=== PATIENT | female | born 1980 | race Caucasian/White ===

== ENCOUNTER 2021-04-08 13:42 | Emergency (ER) | payer MEDICAID, SELFPAY ==
[2021-04-08 15:21] VITALS: BP 143/86; PULSE 98; RESP 20; TEMP 35.9; O2SAT 100; BMI 42.0
[2021-04-08 15:38] LABS: MANUAL DIFF FLAG NO
[2021-04-08 15:40] LABS: Basophils Absolute Auto 0.1 X10*3/uL (0.0-0.2); Basophils Percent Auto 0.5 % (0-2); Eosinophils Absolute Auto 0.3 X10*3/uL (0.0-0.4); Eosinophils Percent Auto 1.9 % (0-4); Hematocrit 38.1 % (37.0-47.0); Hemoglobin 13.1 g/dl (12.0-16.0); Imm Gran Pct Auto 0.7 % (0.0-0.4); Lymphocytes Absolute Auto 3.6 X10*3/uL (1.2-4.9); Lymphocytes Percent Auto 26.1 % (20-40); Mean Corpuscular HGB Conc 34.4 g/dl (31.0-35.0); Mean Corpuscular Hemoglobin 33.9 pg (27.0-33.0); Mean Corpuscular Volume 98.7 fL (80.0-98.0); Mean Platelet Volume 10.2 fL (9.4-12.3); Monocytes Absolute Auto 0.9 X10*3/uL (0.1-1.2); Monocytes Percent Auto 6.4 % (2-11); NRBC Pct Auto 0.1 /100WBC (0.0-0.2); Neutrophils Absolute Auto 8.9 x10*3/uL (2.0-8.3); Neutrophils Percent Auto 64.4 % (45-73); Platelet Count 476 X10*3/uL (160-400); Red Blood Count 3.86 X10*6/uL (4.20-5.50); Red Cell Distribution Width 14.2 % (11.0-16.0); White Blood Count 13.9 X10*3/uL (4.8-10.8)
[2021-04-08 15:45] LABS: Appearance Urine CLEAR; Color Urine YELLOW; Glucose Urine UA NEG (NEG); Leukocyte Esterase Urine NEG (NEG); Nitrite Urine NEG (NEG); Specific Gravity - Urine 1.015 (1.005-1.025); UACC Culture Trigger NO; Urine Blood TRACE (NEG); Urine Ketones NEG (NEG); Urine Protein TRACE MG/DL (NEG-TRACE)
[2021-04-08 15:55] LABS: Alanine Aminotransferase 19 U/L (0-31); Albumin Level 3.8 g/dL (3.5-5.0); Alkaline Phosphatase 59 U/L (39-117); Anion Gap 14 (12-20); Aspartate Amino Transferase 18 U/L (5-31); Bilirubin Total 0.8 mg/dL (0.0-1.0); Blood Urea Nitrogen 7 mg/dL (9-16); Calcium 9.6 mg/dL (8.4-10.2); Carbon Dioxide 24 mmol/L (22-29); Chloride 105 mmol/L (96-108); Creatinine Clr Calc Pharmacy 124.4; Estimated Glomerular Filt Rate > 60; Glucose Random 91 mg/dL (60-115); Potassium 4.2 mmol/L (3.3-5.1); Sodium 139 mmol/L (135-145); Total Protein 7.1 g/dL (6.5-8.0)
[2021-04-08 16:13] LABS: Bacteria Urine 2+ /LPF; Squamous Epithelial Cell Urine 1+ /LPF
[2021-04-08] MEDS: Ibuprofen 600 MG TABLET PO (19:05)
== END 2021-04-08 22:17 | disposition left against medical advice (07) ==
PROVIDERS: Emergency Provider Emergency Medicine; PCP Physician Assistant Medical
DX: R10.9 Unspecified abdominal pain (principal); I10 Essential (primary) hypertension
CPT/HCPCS: 36415; 80053; 81001; 81003; 85025; 99283

== ENCOUNTER 2022-11-26 12:47 | Emergency (ER) | payer OTHER, SELFPAY ==
--- NOTE | ~2022-11-26 | XR_ITS ---
EXAMINATION: XR WRIST, LEFT CLINICAL INFORMATION: Pain COMPARISON: None available. TECHNIQUE: PA, lateral, and oblique views of the left wrist. FINDINGS: No acute fracture or dislocation. Joint spaces are maintained. Soft tissues are unremarkable. XR/XR wrist LT min 3V IMPRESSION: No acute osseous abnormality.
[2022-11-26 12:57] VITALS: BP 169/95; PULSE 82; RESP 16; TEMP 36.6; O2SAT 96; BMI 39.3
--- NOTE | 2022-11-26 12:58 | ED_ITS ---
HPI - General Adult General Chief complaint: Extremity Problem Stated complaint: R & L Hand & Arm Pain Tingling No Injury Time Seen by Provider: 11/26/22 13:02 Source: patient Mode of arrival: ambulatory Limitations: no limitations History of Present Illness HPI narrative: 41 yo female with past medical history of chronic pain syndrome which includes chronic neck and back pain, being seen by rheumatology here with complaints of left hand/wrist burning pain and pins and needles, chronic back and neck pain x 5 days unrelieved with home cymbalta, motrin/tylenol. Patient denies any known injury or trauma. Patient does work on her computer all day. She does have a history of carpal tunnel on the right hand but states this feels different. There is no associated weakness, incontinence, fevers, weight loss, night sweats. Patient reports she had outpatient x-rays of her cervical spine last week but does not know the results. Related Data Previous Rx's Medication Instructions Recorded cyclobenzaprine 10 mg tablet 10 mg PO TID PRN muscle spasm #15 11/26/22 tabs oxycodone 5 mg tablet 5 mg PO Q8H PRN pain #10 tabs 11/26/22 prednisone 20 mg tablet 40 mg (2 x 20 mg) PO DAILY #10 tabs 11/26/22 Allergies Allergy/AdvReac Type Severity Reaction Status Date / Time amitriptyline Allergy Unknown sweat and Verified 11/26/22 12:59 constipation gabapentin Allergy Unknown adverse Verified 11/26/22 12:59 reaction morphine [MORPHINE] Allergy Unknown HOT DIZZY Verified 11/26/22 12:59 NAUSEA, lightheadedness oseltamivir [From TAMIFLU] Allergy Unknown STOMACH Verified 11/26/22 12:59 UPSET, nausea, vomiting pregabalin [From LYRICA] Allergy Unknown HEADACHES, Verified 11/26/22 12:59 cognitive slow down Review of Systems Review of Systems: Yes all other systems are reviewed and are negative Constitutional: Constitutional: Reports no additional constitutional complaints, Denies body ache(s), Denies chills, Denies fever(s), Denies headache(s) and Denies weakness Eyes: Eyes: Reports no additional eye complaints and Denies change in vision ENT: Reports system reviewed and no additional complaints, except as documented, Denies dizziness, Denies headache(s), Denies nasal congestion, Denies nasal discharge and Denies neck pain Cardiovascular: Cardiovascular: Reports no additional cardiovascular complaints, Denies chest pain, Denies leg edema and Denies dyspnea Respiratory: Respiratory: Reports no additional respiratory complaints, Denies cough and Denies dyspnea Gastrointestinal: Gastrointestinal: Reports no additional gastrointestinal complaints, Denies abdominal pain, Denies diarrhea, Denies nausea and Denies vomiting Genitourinary: Genitourinary: Reports no additional female genitourinary complaints and Denies urinary incontinence Musculoskeletal: Musculoskeletal: Reports no additional musculoskeletal complaints, Denies back pain, Denies arthralgias, Denies joint swelling, Denies neck pain, Reports numbness and Reports tingling Integumentary/Breasts: Skin/Breast: Reports system reviewed and no additional complaints, except as docu and Denies rash Neurologic: Reports system reviewed and no additional complaints, except as documented, Denies Abnormal speech present, Denies dizziness, Denies headache(s), Reports numbness, Reports tingling and Denies weakness PMFSH Past Medical History Attestation statement: The following information was validated with the patient. Source: old records reviewed and nursing notes reviewed Medical History Anxiety Depression Hereditary spherocytosis HTN (hypertension) Steatosis of liver Acute renal impairment Undifferentiated spondyloarthropathy Osteoarthritis Chronic interstitial cystitis Immunodeficiency Chronic fatigue syndrome Fibromyalgia Asthma IBS (irritable bowel syndrome) Obesity Surgical History History of appendectomy Social History Social History Advance Directives: Yes Advance Directives Information Provided: Yes Advance Directives on File: No Physical Exam ED Vital Signs: Vital Signs - 24 hr 11/26/22 12:57 Temperature 97.9 F Pulse Rate 82 Respiratory Rate 16 Blood Pressure 169/95 H Pulse Oximetry 96 Oxygen Delivery Method Room Air BMI result Body Mass Index 39.3 Const General: cooperative, healthy appearing, comfortable and no acute distress Orientation/consciousness: patient oriented x3 Limitations: no limitations HENMT Head: Yes normal to inspection Ears: hearing grossly normal bilaterally General nose exam: Normal external nose present Face and sinus: Yes normal facial exam Mouth: Normal oral and palatal mucosa present Throat: Yes posterior oropharynx normal Eyes General: appearance normal, both eyes and all related structures Pupils: Equal, round and reactive pupils present Neck Other: No cervical step offs or deformities TTP to the left trap with palpable muscle spasm Neck: Yes normal visual inspection, Yes full ROM, Yes no lymphadenopathy and Yes no meningeal signs Chest Chest palpation & inspection: normal inspection of the chest Resp Effort & Inspection: normal respiratory effort Auscultation: clear to auscultation bilaterally Cardio Rate: regular rate Rhythm: regular rhythm Peripheral pulses: Peripheral pulses 2+ throughout GI Inspection: Yes normal to inspection Palpation (GI): Soft to palpation and nontender Auscultation: normal bowel sounds Back/Spine/Pelvis Other: TTP to lumbar spine with no step offs or deformities Pain with flexion of spine Thoracic/Lumbar Spine: thoracic and lumbar spine normal to inspection Skin General skin exam: no rashes or lesions noted Neuro General: patient oriented x3, moves all extremities, no meningeal signs, no focal motor deficits and normal sensation to monofilament Cranial nerves: Yes CN's II-XII intact bilaterally, Yes Equal, round and reactive pupils present, Yes Bilaterally intact EOM present, Yes Nystagmus not present, Yes Normal facial strength present and Yes Midline tongue present Cognition (Neuro): normal cognition Speech: No Abnormal speech present Gait exam (Neuro): Normal gait present Motor exam (neuro): 5/5 motor strength present throughout Sensory Exam: Normal double simultaneous stimulation for sensation Deep tendon reflexes (DTR's): Right triceps reflex intensity grade: 2+, Left triceps reflex intensity grade: 2+, Rt Biceps (C5, C6): 2+, Left biceps reflex intensity grade: 2+, Right brachioradialis reflex intensity grade: 2+ and Left brachioradialis reflex intensity grade: 2+ Extrem Other: TTP to the left dorsal wrist worsened with flexion No swelling Full passive/active ROM Negative phalen, tinel, finklestein test General: Yes normal to inspection Course Course Course Narrative: RME - 41 yo female with history of chronic pain syndrome who presents to the ER for evaluation of left hand, burning, tingling and lower arm numbness for the last 5 days. History of carpal tunnel on the right. Works on a computer. She also reports terrible back and shoulder pain, hx arthritis of the back. [employer] took a cervical spinal x-ray a couple of days ago but never got the read. Plan: xray wrist and cervical spine Reevaluation(s) Reevaluation #1: X-rays of the left wrist are unremarkable. Patient reports improvement of pain after receiving analgesia here. I will discharge her home with supportive care and recommendations to follow-up with her primary care doctor for any continued symptoms for possible MRI of her cervical spine. Reviewed worrisome signs and symptoms of when to return to the emergency room. Comfortable plan for discharge home. Medications Administered Discontinued Medications Generic Name Dose Route Start Last Admin Trade Name Maxine PRN Reason Stop Dose Admin Cyclobenzaprine HCl 10 mg 11/26/22 14:14 11/26/22 14:35 Cyclobenzaprine Hcl 10 Mg Tablet PO 11/26/22 14:15 10 mg ONCE ONE Administration Ketorolac Tromethamine 60 mg 11/26/22 14:14 11/26/22 14:34 Ketorolac Tromethamine 60 Mg/2 Ml Vial IM 11/26/22 14:15 60 mg ONCE ONE Administration Oxycodone HCl 5 mg 11/26/22 14:14 11/26/22 14:35 Oxycodone Hcl Immed Release 5 Mg Tablet PO 11/26/22 14:15 5 mg ONCE ONE Administration Medical Decision Making Medical Decision Making MDM Narrative: 41 yo female with past medical history of chronic pain syndrome which includes chronic neck and back pain, being seen by rheumatology here with complaints of left hand/wrist burning pain and pins and needles, chronic back and neck pain x 5 days unrelieved with home cymbalta, motrin/tylenol. Patient denies any known injury or trauma. Patient does work on her computer all day. She does have a history of carpal tunnel on the right hand but states this feels different. There is no associated weakness, incontinence, fevers, weight loss, night sweats. Patient reports she had outpatient x-rays of her cervical spine last week but do es not know the results. On exam patient has a normal neuro exam. There is some mild tenderness the left trapezius with palpable muscle spasms worsened with compression palpation. There is also some mild tenderness over the left dorsal wrist which is worsened with flexion. ?cervical radiculopathy vs carpal tunnel syndrome Plan: X-ray left wrist, had outpatient cervical spine x-rays so I do not think she needs repeat Provide analgesia and re-assess Differential Diagnosis Differential Diagnoses: The differential diagnosis associated with the presentation includes Cervical radiculopathy Carpal tunnel syndrome Low concern for cord compression, cauda equina with normal neuro exam no red flag symptoms Low concern for epidural abscess with no history of IV drug abuse, immunocompromised state in her normal neurological exam Low concern for malignancy with no red flag symptoms Low concern for fracture with no reports of injury Admission/Observation Consideration of admission/observation: Escalation of care including admission/observation considered No neurological deficits or red flag symptoms to suggest need for emergent MRI, neurosurgery consultation or transfer to tertiary care center Independent Interpretation I performed an independent interpretation of an: Plain X-Ray Interpretation: I independently reviewed the x-ray agree with radiology report Radiology Impression Discussion of test interpretation with radiology: I have reviewed the radiologist's reading. Radiologist Impression: [address] [address] XRay Report Signed Patient: Kylie Fitzpatrick MR#: [id number] : 1980 Acct:[id number] Age/Sex: 41 / F ADM Date: 11/26/22 Loc: HO.ED Attending Dr: Ordering Physician: Shellie Ruffin Date of Service: 11/26/22 Procedure(s): XR wrist LT min 3V Accession Number(s): [id number] cc: SOPHIE GOODWIN PA-C; Shellie Ruffin~ EXAMINATION: XR WRIST, LEFT CLINICAL INFORMATION: Pain COMPARISON: None available. TECHNIQUE: PA, lateral, and oblique views of the left wrist. FINDINGS: No acute fracture or dislocation. Joint spaces are maintained. Soft tissues are unremarkable. XR/XR wrist LT min 3V IMPRESSION: No acute osseous abnormality. Independent Historian Clinical information obtained from an independent historian. History obtained from or confirmed by: Spouse Tests considered The following testing was considered but not selected: No neurological deficits or red flag symptoms to suggest need for emergent MRI Prescription Management I considered prescription management with: Pain Medication Discharge Plan Discharge Clinical Impression: Cervical radiculopathy Patient Disposition: Home, Self-Care Instructions: Cervical Radiculopathy (ED) Additional Instructions: Heat to the area Gentle stretching and gentle massage Follow-up with your primary care doctor for any continued symptoms as you may need to have an MRI of your cervical spine Take medications as prescribed Prescriptions: New cyclobenzaprine 10 mg tablet 10 mg PO TID PRN (Reason: muscle spasm) Qty: 15 0RF prednisone 20 mg tablet 40 mg PO DAILY Qty: 10 0RF oxycodone 5 mg tablet 5 mg PO Q8H PRN (Reason: pain) Qty: 10 0RF Rx Instructions: Partial Fill upon patient request. Referrals: Sudhakar Guzmán MD, PhD [Physician] - 1 week Sophie Goodwin PA-C [Primary Care Provider] - 1 week (for continued symptoms ) Stand Alone Forms: Work/School Release Interventions: ED Discharge Assessment Last Done: 11/26/22 15:23 Discharge Date/Time: 11/26/22 15:31
[2022-11-26] MEDS: Ketorolac Tromethamine 60 MG/2 ML VIAL IM (14:34)
[2022-11-26] MEDS: oxyCODONE HCl Immed Release 5 MG TABLET PO (14:35)
[2022-11-26] MEDS: Cyclobenzaprine HCl 10 MG TABLET PO (14:35)
== END 2022-11-26 15:31 | disposition home or self-care (01) ==
PROVIDERS: Emergency Provider Emergency Medicine; PCP Physician Assistant Medical
DX: M25.532 Pain in left wrist (principal); M54.2 Cervicalgia; M54.12 Radiculopathy, cervical region; G89.29 Other chronic pain; M54.50 Low back pain, unspecified; Z79.899 Other long term (current) drug therapy
CPT/HCPCS: 73110; 96372; 99283; 99284; J1885

== ENCOUNTER 2022-12-13 08:46 | Outpatient (AMB) | payer OTHER, SELFPAY ==
[2022-12-13 08:50] VITALS: BP 160/86; PULSE 79; TEMP 36.7; O2SAT 96; BMI 40.0
--- NOTE | 2022-12-13 08:50 | MHC.OFFVIS ---
Intake Vital Signs 12/13/22 08:50 Height 5 ft 8.5 in Weight 266 lb 12.149 oz BMI 40.0 BP 160/86 H Blood Pressure Location Rt brachial Position Sitting Pulse 79 Pulse Source Pulse Oximeter Temp 98.1 F Temp Source Skin Pulse Oximetry (%) 96 Intake Visit Reasons: Multiple joint pain Intake Note: New patient presenting to office today for multiple joint pains. Previously seen C Yo Morrow Jr for knee injections. Referred to [facility] for gel and cortisone injections. Reports degenerative disc disease. Unable to feel left hand and c/o excruciating pain right shoulder. Physician Pediatrician Required: No Accompanied by: Self / Same As Patient Allergies amitriptyline Allergy (Unknown, Verified 12/13/22 08:54) sweat and constipation gabapentin Allergy (Unknown, Verified 12/13/22 08:54) adverse reaction morphine [MORPHINE] Allergy (Unknown, Verified 12/13/22 08:54) HOT DIZZY NAUSEA, lightheadedness oseltamivir [From TAMIFLU] Allergy (Unknown, Verified 12/13/22 08:54) STOMACH UPSET, nausea, vomiting pregabalin [From LYRICA] Allergy (Unknown, Verified 12/13/22 08:54) HEADACHES, cognitive slow down Medication List - Last Reconciled 12/13/22 by Hernandez Montanez MD carvedilol 25 mg PO BID cholecalciferol (vitamin D3) (Vitamin D3) 125 mcg PO DAILY cyanocobalamin (vitamin B-12) mcg PO cyclobenzaprine 10 mg PO TID PRN duloxetine 60 mg PO DAILY fexofenadine 180 mg PO DAILY pridzlxbsto-hdjyjevcp-hdvlhhvm 200-62.5-25 mcg (Trelegy Ellipta) 1 ea inhalation DAILY lorazepam 0.5 mg PO DAILY PRN losartan 100 mg PO DAILY magnesium oxide mg PO montelukast 10 mg PO DAILY norethindrone ac-eth estradiol 1-20 mg-mcg (Junel) 1 tab PO DAILY omeprazole 20 mg PO BID oxycodone 5 mg PO Q8H PRN potassium chloride ER 10 mEq PO QID prednisone 40 mg PO DAILY PRN ropinirole 4 mg PO BEDTIME sod phos di, mono-K phos mono 250 mg (Phospha Neutral) tabs PO thiamine HCl (vitamin B1) 100 mg PO DAILY HPI HPI Comments History of Present Illness Details This is a 42-year-old female who presents for evaluation of multiple joint pain. Patient has seen multiple rheumatologists over the past few years. She used to follow-up with Dr. Morrow. She was not diagnosed with a specific an autoimmune rheumatic disease, per patient. She used to receive knee cortisone injections every 3-4 months. She was seen once by Dr. Velez in 2019 and was diagnosed with an undifferentiated spondyloarthropathy and was prescribed sulfasalazine, patient did not take sulfasalazine for fear of side effects. Patient states that she gets intermittent abrupt onset of toe swelling. She denies any skin rashes. For 1 year she has been having right elbow swelling, unrelated to activity. More recently she has been having sharp neck pain radiating to both shoulders. She has been having tingling and numbness of both hands, more so in the left hand. She states that prednisone has always been helpful. She is currently prescribed prednisone by the ER, when she presented a few days ago. She is scheduled for a neck MRI today. Ordered by PCP. She states that she has been having GI symptoms for years did multiple studies including endoscopy, colonoscopy, motility study, according to patient no test was diagnostic. She has a sister with psoriasis and mother with ulcerative colitis [facility] [place] Medical History (Updated 12/13/22 @ 09:50 by Hernandez Monatnez MD) Inflammatory bowel disease Encounter for testing for latent tuberculosis infection Screening for viral disease History of PCOS Lower leg injury Sprain of finger Fatigue Joint pain Myositis Female pattern alopecia Vitamin D deficiency Restless legs Anxiety Depression Hereditary spherocytosis HTN (hypertension) Steatosis of liver Acute renal impairment Undifferentiated spondyloarthropathy Osteoarthritis Chronic interstitial cystitis Immunodeficiency Chronic fatigue syndrome Fibromyalgia Asthma IBS (irritable bowel syndrome) Obesity Surgical History History of surgery Hx of tonsillectomy History of appendectomy Family History Paternal Grandfather Myocardial infarction Sister Thyroid disease Psoriasis Mother Thyroid disease Malignant melanoma Graves' disease Ulcerative colitis Sister Arthritis Father HTN (hypertension) Arthritis Social History Alcohol intake: current Alcohol intake frequency: holidays/special occasions only Patient Tobacco Use Status: Former Tobacco user Substance Use Type: Marijuana Current occupational status: employed Current occupation: works for [employer] Review of Systems Const Reports fatigue and Reports weakness Eyes Reports loss of vision ENT Reports dry mouth Card Reports dyspnea Resp Reports dyspnea and Reports wheezing GI Reports constipation Reports difficulty voiding Skin/Breast Reports alopecia and Reports unusual bruising Neuro Reports loss of vision and Reports weakness Endo Reports fatigue Aller/Immun Reports wheezing Physical Exam Vital Signs: Last Vital Signs Temp 98.1 F 12/13/22 08:50 Pulse 79 12/13/22 08:50 BP 160/86 H 12/13/22 08:50 Pulse Ox 96 12/13/22 08:50 BMI result Body Mass Index 40.0 Const General: cooperative and healthy appearing Nutritional Appearance: obese morbidly obese Orientation/consciousness: patient oriented x3 Limitations: no limitations HEENT Head: Yes normocephalic and Yes atraumatic Mouth: moist mucous membranes Resp Effort & Inspection: normal respiratory effort and able to speak in complete sentences Auscultation: clear to auscultation bilaterally Skin General skin exam: no rashes or lesions noted Neuro General: patient oriented x3 Extrem Other: Right wrist pain with full flexion otherwise no swollen or tender joints in both hands, fingers or wrists Normal nailfold capillaroscopy Right common extensor tendon swelling without tenderness Positive resisted wrist extension test Negative empty can test and negative speed's test bilaterally Limited range of motion with right arm abduction Negative straight leg raise test bilaterally Negative Vonnie test bilaterally Danielle test 10-14 cm No swelling, erythema, warmth in both ankles, feet Negative MTP tenderness and negative MTP squeeze test bilateral Results Reviewed Results Reviewed: Labs in 2018: TABITHA 1-40 speckled, ESR normal, dsDNA normal, HLA B27 negative, josias negative, CCP/RF negative Labs 2017? Synovial fluid showed WBC 7250 with 58% neutrophils CT pelvis showed chronic sclerotic changes and spurring across patent sacroiliac joint, MRI sacrum did not show sacroiliitis Right elbow MRI without contrast 08/2022 Interpretation:? There is increased signal and thickening involving the common extensor tendon most consistent with tendinopathy and and mild to moderate lateral epicondylitis.? The radial collateral ligament complex is intact.?? The common flexor tendon is intact.? The medial ulnar collateral ligament is intact.?? The biceps, brachialis and triceps tendons are intact.? The annular ligament is intact.? The anconeus muscle is intact.? Ulnar nerve is intact without abnormal signal.?? The adrenal is intact within its fossa.? There is no evidence of any bone marrow edema of the agreement.? The coracoid process is intact.? The radial head and neck are intact.? No significant joint effusion is seen? Conclusion: 1. There is increased signal and thickening of the common extensor tendon consistent with a moderate lateral epicondylitis.?? 2. The remaining tendons, ligaments an osseous structures of the elbow are intact Right wrist x-ray 08/2022? Findings there is no acute fracture, subluxation, or dislocation.?? The soft tissues are unremarkable.?? Impression:? No acute bone abnormality Right elbow x-ray 08/2022? Findings:? No fracture, subluxation or dislocation is evident.? There is no joint effusion.? There is a sclerotic intramedullary density in the distal right humeral diaphysis likely a bone island The soft tissues are unremarkable? Impression:? No acute bone abnormality Chest x-ray 08/2022? Impression:? No acute disease SI joint x-rays 03/2021 Impression:? Within normal limits Right hip x-ray 08/2020? Impression: 1. No bony abnormality 2. No gross arthritic change? Right knee x-ray 08/2020? Impression:? 1. No bony injury? 2. Mild tricompartmental osteoarthritis T-spine x-ray 07/2020? Impression:? There are multilevel degenerative disc disease changes throughout the spine Labs 07/2022 WBC 16.3? Hemoglobin 13.3? Platelets 533 BMP unremarkable LFT normal SPEP:? Normal except for mildly reduced albumin at 3.7 (>3.8) Total cholesterol 151? Triglycerides 172 HDL 43 Direct LDL 77 TSH 1.00 PTH 65 nl Iron studies all normal CBC Assessment & Plan Assessment & Plan (1) Undifferentiated spondyloarthropathy: Code(s): M47.819 - Spondylosis without myelopathy or radiculopathy, site unspecified Plan: This is a 42-year-old female presents for evaluation of diffuse joint pain. Clinical picture consistent with an undifferentiated spondyloarthropathy, in addition to degenerative arthritis and fibromyalgia. Old labs and imaging studies reviewed. Will check additional labs. Will retrieve cervical spine MRI. Will have to consider putting patient on a DMARD. However will have to be cautious given her history of splenectomy. Plan I spent 65 minutes reviewing patient's chart, evaluating patient, ordering diagnostic workup, counseling patient and documenting in the chart Orders: Orders Erythrocyte Sedimentation Rate Today M47.819 - Spondylosis without myelopathy or radiculopathy, site unspecified Immunofixation Pnl, Serum Today M47.819 - Spondylosis without myelopathy or radiculopathy, site unspecified Protein Electrophoresis, Serum Today M47.819 - Spondylosis without myelopathy or radiculopathy, site unspecified T Spot TB Today Z11.7 - Encounter for testing for latent tuberculosis infection Other Ref Test - Misc Today K52.9 - Noninfective gastroenteritis and colitis, unspecified Complete Blood Count Auto Diff Today M47.819 - Spondylosis without myelopathy or radiculopathy, site unspecified Comprehensive Met. Panel Today M47.819 - Spondylosis without myelopathy or radiculopathy, site unspecified C Reactive Protein Today M47.819 - Spondylosis without myelopathy or radiculopathy, site unspecified Hepatitis A,B,C Profile Today Z11.59 - Encounter for screening for other viral diseases Medications: Changed From prednisone 40 mg (2 x 20 mg) PO DAILY 10 tabs 0RF To prednisone 40 mg PO DAILY PRN Coding Level of Care Code New Pt Level 5 (72326) Diagnoses Undifferentiated spondyloarthropathy M47.819
== END 2022-12-13 09:39 | disposition home or self-care (01) ==
PROVIDERS: PCP Physician Assistant Medical; Visit Provider Student in an Organized Health Care Education/Training Program
DX: M47.819 Spondylosis without myelopathy or radiculopathy, site unspecified (principal)
CPT/HCPCS: 99205

== ENCOUNTER → 2022-12-13 08:46 | Outpatient (BNVA) | payer OTHER, SELFPAY | PROVIDERS: PCP Physician Assistant Medical; Visit Provider Student in an Organized Health Care Education/Training Program ==

== ENCOUNTER 2022-12-18 21:48 | Emergency (ER) | payer OTHER, SELFPAY ==
--- NOTE | 2022-12-18 | ECG_ITS ---
Test Reason : SOB Blood Pressure : / mmHG Vent. Rate : 067 BPM Atrial Rate : 067 BPM P-R Int : 124 ms QRS Dur : 090 ms QT Int : 418 ms P-R-T Axes : -10 007 020 degrees QTc Int : 441 ms Normal sinus rhythm Normal ECG When compared with ECG of 17-SEP-2018 12:32, No significant change was found Referred By: Generic ED Physician Electronically Signed By:ANANT CATALAN MD
[2022-12-18 22:05] VITALS: BP 174/103; BP 194/104; PULSE 70; RESP 14; TEMP 36.8; O2SAT 100; O2SAT 97; BMI 41.0
[2022-12-18] MEDS: droPERidol 5 MG/2 ML VIAL 1.25 MG IVPUSH (23:02)
[2022-12-18 23:14] LABS: MANUAL DIFF FLAG NO
[2022-12-18 23:16] LABS: Basophils Absolute Auto 0.1 X10*3/uL (0.0-0.2); Basophils Percent Auto 0.8 % (0-2); Eosinophils Absolute Auto 0.5 X10*3/uL (0.0-0.4); Eosinophils Percent Auto 3.6 % (0-4); Hematocrit 40.9 % (37.0-47.0); Hemoglobin 13.6 g/dl (12.0-16.0); Imm Gran Abs Auto 0.18 X10*3/uL (0.00-0.03); Imm Gran Pct Auto 1.4 % (0.0-0.4); Lymphocytes Absolute Auto 3.4 X10*3/uL (1.2-4.9); Lymphocytes Percent Auto 26.5 % (20-40); Mean Corpuscular HGB Conc 33.3 g/dl (31.0-35.0); Mean Corpuscular Hemoglobin 32.2 pg (27.0-33.0); Mean Corpuscular Volume 96.9 fL (80.0-98.0); Mean Platelet Volume 10.3 fL (9.4-12.3); Monocytes Absolute Auto 1.1 X10*3/uL (0.1-1.2); Monocytes Percent Auto 8.4 % (2-11); Neutrophils Absolute Auto 7.7 x10*3/uL (2.0-8.3); Neutrophils Percent Auto 59.3 % (45-73); Platelet Count 544 X10*3/uL (160-400); Red Blood Count 4.22 X10*6/uL (4.20-5.50); Red Cell Distribution Width 13.6 % (11.0-16.0); White Blood Count 12.9 X10*3/uL (4.8-10.8)
--- NOTE | 2022-12-18 23:16 | ED_ITS ---
HPI - Syncope General Chief Complaint: Syncope Stated Complaint: syncope Time Seen by Provider: 12/18/22 23:16 Source: patient Mode of arrival: EMS Limitations: no limitations History of Present Illness HPI narrative: patient been feeling dizzy for last few days patient turning her head to the right side has undifferentiated cervical spondylosis arthropathy today while taking a shower patient felt more dizzy with everything spinning aroundunable to stand open with increase nausea. History of vertigo in the past no fever no chills no cough upper respiratory no urinary complaints no fever or chills no chest or palpitation Related Data Home Medications Medication Instructions Recorded Confirmed carvedilol 25 mg tablet 25 mg PO BID 12/13/22 12/13/22 cholecalciferol (vitamin D3) 125 125 mcg PO DAILY 12/13/22 12/13/22 mcg (5,000 unit) tablet (Vitamin D3) cyanocobalamin (vitamin B-12) mcg PO 12/13/22 12/13/22 1,000 mcg tablet duloxetine 60 mg capsule,delayed 60 mg PO DAILY 12/13/22 12/13/22 release fexofenadine 180 mg tablet 180 mg PO DAILY 12/13/22 12/13/22 fluticasone fur. 200 mcg-umeclid 1 ea inhalation DAILY 12/13/22 12/13/22 62.5 mcg-vilant 25 mcg inhalat.powder (Trelegy Ellipta) lorazepam 0.5 mg tablet 0.5 mg PO DAILY PRN 12/13/22 12/13/22 losartan 100 mg tablet 100 mg PO DAILY 12/13/22 12/13/22 magnesium oxide mg PO 12/13/22 12/13/22 montelukast 10 mg tablet 10 mg PO DAILY 12/13/22 12/13/22 norethindrone acetate 1 mg-ethinyl 1 tab PO DAILY 12/13/22 12/13/22 estradiol 20 mcg tablet (Junel) omeprazole 20 mg capsule,delayed 20 mg PO BID 12/13/22 12/13/22 release potassium chloride 10 mEq 10 meq PO QID 12/13/22 12/13/22 tablet,extended release prednisone 20 mg tablet 40 mg PO DAILY PRN 12/13/22 12/13/22 ropinirole 4 mg tablet 4 mg PO BEDTIME 12/13/22 12/13/22 sodium di- and tab PO 12/13/22 12/13/22 monophosphate-potassium phos monobasic 250 mg tablet (Phospha Neutral) thiamine HCl (vitamin B1) 100 mg 100 mg PO DAILY 12/13/22 12/13/22 tablet Previous Rx's Medication Instructions Recorded cyclobenzaprine 10 mg tablet 10 mg PO TID PRN muscle spasm #15 11/26/22 tabs oxycodone 5 mg tablet 5 mg PO Q8H PRN pain #10 tabs 11/26/22 meclizine 25 mg tablet 25 mg PO TID PRN dizziness #20 tabs 12/19/22 Allergies Allergy/AdvReac Type Severity Reaction Status Date / Time amitriptyline Allergy Unknown sweat and Verified 12/18/22 22:11 constipation gabapentin Allergy Unknown adverse Verified 12/18/22 22:11 reaction morphine [MORPHINE] Allergy Unknown HOT DIZZY Verified 12/18/22 22:11 NAUSEA, lightheadedness oseltamivir [From TAMIFLU] Allergy Unknown STOMACH Verified 12/18/22 22:11 UPSET, nausea, vomiting pregabalin [From LYRICA] Allergy Unknown HEADACHES, Verified 12/18/22 22:11 cognitive slow down Review of Systems 2 Review of Systems: Yes all other systems are reviewed and are negative PMFSH Past Medical History Medical History Inflammatory bowel disease Encounter for testing for latent tuberculosis infection Screening for viral disease History of PCOS Lower leg injury Sprain of finger Fatigue Joint pain Myositis Female pattern alopecia Vitamin D deficiency Restless legs Anxiety Depression Hereditary spherocytosis HTN (hypertension) Steatosis of liver Acute renal impairment Undifferentiated spondyloarthropathy Osteoarthritis Chronic interstitial cystitis Immunodeficiency Chronic fatigue syndrome Fibromyalgia Asthma IBS (irritable bowel syndrome) Obesity Surgical History History of surgery Hx of tonsillectomy History of appendectomy Family History Family History Paternal Grandfather Myocardial infarction Sister Thyroid disease Psoriasis Mother Thyroid disease Malignant melanoma Graves' disease Ulcerative colitis Sister Arthritis Father HTN (hypertension) Arthritis Social History Social History Alcohol intake: current Alcohol intake frequency: holidays/special occasions only Patient Tobacco Use Status: Former Tobacco user Smoked in Last 30 Days: No Use of substances other than those prescribed or required for medical reasons: Yes Substance Use Type: Marijuana Substance Use Frequency: Daily Advance Directives: No Advance Directives Information Provided: Yes Patient : No Current occupational status: employed Current occupation: works for [employer] Physical Exam 2 Vital Signs: Vital Signs: Last Vital Signs Temp 98.3 F 12/18/22 22:05 Pulse 85 12/19/22 00:09 Resp 14 12/18/22 22:05 BP 195/101 H 12/19/22 00:09 Pulse Ox 100 12/18/22 22:05 O2 Del Method Room Air 12/18/22 22:05 BMI result Body Mass Index 41.0 Appearance: Alert. Oriented X3. No acute distress. Eyes: PERRLA, No Nystagmus ENT: Pharynx normal. Oral Mucosa moist Neck: Normal inspection. Neck supple. CVS: Normal heart rate and rhythm. Pulses normal. Respiratory: No respiratory distress. Equal air entry bilateral, no wheezing/rales/rhonchi Abdomen: Soft and nontender. Bowel sounds are present, no mass palpable, no CVA tenderness Skin: Skin warm and dry. Normal skin color. Normal skin turgor. Extremities: No lower extremity edema. No calf tenderness Neuro: Oriented X 3. No motor deficit. No sensory deficit.No cerebellar signs , cranial nerves II-XII intact increase vertiginous feeling moving the head to the right side Medications Administered Discontinued Medications Generic Name Dose Route Start Last Admin Trade Name Freq PRN Reason Stop Dose Admin Droperidol 1.25 mg 12/18/22 22:39 12/18/22 23:02 Droperidol 5 Mg/2 Ml Vial IVPUSH 12/18/22 22:40 1.25 mg ONCE ONE Administration Meclizine HCl 50 mg 12/18/22 23:50 12/19/22 00:13 Meclizine Hcl 25 Mg Tablet PO 12/18/22 23:51 50 mg ONCE ONE Administration Medical Decision Making Medical Decision Making [facility] Narrative: Patient's symptoms mentioned with benign positional vertigo no signs of [employer] involvement patient felt better for meclizine ambulatory in the ER orthostatics are stable no cardiac arrhythmias noted Differential Diagnosis Differential Diagnoses: The differential diagnosis associated with the presentation includes Vasovagal syncope/seizure/cardiac arrhythmia/benign positional vertigo Lab Data [facility] Lab Attestation statement: I reviewed the patient's lab results. 12/18/22 23:05 12/18/22 23:05 Labs: Lab Results 12/18/22 12/18/22 Range/Units 23:05 23:55 WBC 12.9 H (4.8-10.8) X10*3/uL RBC 4.22 (4.20-5.50) X10*6/uL Hgb 13.6 (12.0-16.0) g/dl Hct 40.9 (37.0-47.0) % MCV 96.9 (80.0-98.0) fL MCH 32.2 (27.0-33.0) pg MCHC 33.3 (31.0-35.0) g/dl RDW 13.6 (11.0-16.0) % Plt Count 544 H (160-400) X10*3/uL MPV 10.3 (9.4-12.3) fL Immature Gran % (Auto) 1.4 H (0.0-0.4) % Neut % (Auto) 59.3 (45-73) % Lymph % (Auto) 26.5 (20-40) % [place] % (Auto) 8.4 (2-11) % Eos % (Auto) 3.6 (0-4) % Baso % (Auto) 0.8 (0-2) % Lymph # (Auto) 3.4 (1.2-4.9) X10*3/uL [place] # (Auto) 1.1 (0.1-1.2) X10*3/uL Eos # (Auto) 0.5 H (0.0-0.4) X10*3/uL Baso # (Auto) 0.1 (0.0-0.2) X10*3/uL Abs Immat Gran (auto) 0.18 H (0.00-0.03) X10*3/uL Absolute Neuts (auto) 7.7 (2.0-8.3) x10*3/uL Absolute Nucleated RBC 0.000 (0.0-0.012) X10*3/uL Nucleated RBC % (auto) 0.0 (0.0-0.2) /100WBC Sodium 142 (135-145) mmol/L Potassium 4.3 (3.3-5.1) mmol/L Chloride 112 H (96-108) mmol/L Carbon Dioxide 22 (22-29) mmol/L Anion Gap 12 (12-20) BUN 13 (9-16) mg/dL Creatinine 0.83 (0.5-1.4) mg/dL Estim Creat Clear Calc 119.1 Estimated GFR > 60 Random Glucose 88 (60-115) mg/dL Calcium 9.3 (8.4-10.2) mg/dL Total Bilirubin 0.3 (0.0-1.0) mg/dL AST 14 (5-31) U/L ALT 13 (0-31) U/L Alkaline Phosphatase 87 (39-117) U/L Troponin I High Sens < 2.7 (<3.5-17.0) ng/L Total Protein 7.2 (6.5-8.0) g/dL Albumin 3.7 (3.5-5.0) g/dL Lipase 13 (8-78) U/L Urine Color Yellow Urine Appearance Clear Urine pH 6.0 (5.0-9.0) Ur Specific Bailey 1.025 (1.005-1.025) Urine Protein 30 (1+) H (Neg-Trace) mg/dL Urine Glucose (UA) Negative (Negative) mg/dL Urine Ketones Negative (Negative) mg/dL Urine Blood Small (1+) H (Negative) Urine Nitrite Negative (Negative) Ur Leukocyte Esterase Negative (Negative) Urine RBC 6-10 H (0-2) /HPF Urine WBC 0-5 (0-5) /HPF Ur Squamous Epith Cells 0-2 (0-2) /HPF Urine Bacteria Trace (None Seen) Hyaline Casts 0-2 (0-2) /LPF Urine Test NEGATIVE (NEGATIVE) COVID-19 (SHAYLA) Negative (Negative) COVID-19 Clin Com See Note Independent Interpretation I performed an independent interpretation of an: EKG Interpretation: Normal sinus rhythm heart rate 67 beats per minute normal intervals normal axis no acute ST-T changes Discharge Plan Discharge Clinical Impression: Benign paroxysmal positional vertigo Patient Disposition: Home, Self-Care Instructions: Benign Paroxysmal Positional Vertigo (ED) Additional Instructions: care and cautions as Advised medicine for dizziness as prescribed follow with PCP if not better Prescriptions: New meclizine 25 mg tablet 25 mg PO TID PRN (Reason: dizziness) Qty: 20 0RF No Action cyclobenzaprine 10 mg tablet 10 mg PO TID PRN (Reason: muscle spasm) Qty: 15 0RF oxycodone 5 mg tablet 5 mg PO Q8H PRN (Reason: pain) Qty: 10 0RF Rx Instructions: Partial Fill upon patient request. ropinirole 4 mg tablet 4 mg PO BEDTIME duloxetine 60 mg capsule,delayed release(DR/EC) 60 mg PO DAILY magnesium oxide 250 mg magnesium tablet PO montelukast 10 mg tablet 10 mg PO DAILY omeprazole 20 mg capsule,delayed release(DR/EC) 20 mg PO BID potassium chloride 10 mEq tablet extended release 10 meq PO QID norethindrone ac-eth estradiol [03/17 ()] 1-20 mg-mcg tablet 1 tab PO DAILY losartan 100 mg tablet 100 mg PO DAILY fexofenadine 180 mg tablet 180 mg PO DAILY thiamine HCl (vitamin B1) 100 mg tablet 100 mg PO DAILY carvedilol 25 mg tablet 25 mg PO BID cholecalciferol (vitamin D3) [Vitamin D3] 125 mcg (5,000 unit) tablet 125 mcg PO DAILY lorazepam 0.5 mg tablet 0.5 mg PO DAILY PRN Phospha 250 Neutral 250 mg tablet PO Trelegy Ellipta 200-62.5-25 mcg blister with device 1 ea inhalation DAILY cyanocobalamin (vitamin B-12) 1,000 mcg tablet PO prednisone 20 mg tablet 40 mg PO DAILY PRN Interventions: ED Discharge Assessment Last Done: 12/19/22 00:26 Discharge Date/Time: 12/19/22 00:28
[2022-12-18 23:28] LABS: Alanine Aminotransferase 13 U/L (0-31); Albumin Level 3.7 g/dL (3.5-5.0); Alkaline Phosphatase 87 U/L (39-117); Anion Gap 12 (12-20); Aspartate Amino Transferase 14 U/L (5-31); Bilirubin Total 0.3 mg/dL (0.0-1.0); Blood Urea Nitrogen 13 mg/dL (9-16); Calcium 9.3 mg/dL (8.4-10.2); Carbon Dioxide 22 mmol/L (22-29); Chloride 112 mmol/L (96-108); Creatinine Clr Calc Pharmacy 119.1; Estimated Glomerular Filt Rate > 60; Glucose Random 88 mg/dL (60-115); Lipase 13 U/L (8-78); Potassium 4.3 mmol/L (3.3-5.1); Sodium 142 mmol/L (135-145); Total Protein 7.2 g/dL (6.5-8.0)
[2022-12-18 23:42] LABS: Troponin-I High Sensitivity < 2.7 ng/L (<3.5-17.0)
[2022-12-19 00:03] LABS: Appearance Urine Clear; Color Urine Yellow; Glucose Urine UA Negative (Negative); Leukocyte Esterase Urine Negative (Negative); Nitrite Urine Negative (Negative); Specific Gravity - Urine 1.025 (1.005-1.025); UMIC TRIGGER UACC YES; Urine Blood Small (1+) (Negative); Urine Ketones Negative (Negative); Urine Protein 30 (1+) mg/dL (Neg-Trace)
[2022-12-19 00:04] LABS: UPreg QC Valid YES; Urine Pregnancy NEGATIVE (NEGATIVE)
[2022-12-19 00:08] VITALS: BP 203/102; PULSE 73
[2022-12-19 00:09] VITALS: BP 184/95; BP 195/101; PULSE 76; PULSE 85
[2022-12-19 00:11] LABS: Bacteria Urine Trace (None Seen); Hyaline Casts Urine 0-2 /LPF (0-2); Squamous Epithelial Cell Urine 0-2 /HPF (0-2); WBC Urine 0-5 /HPF (0-5)
[2022-12-19] MEDS: Meclizine HCl 25 MG TABLET 50 MG PO (00:13)
[2022-12-19 00:14] LABS: COVID-19 Test Negative (Negative); IDNOW Serial# 08D9AD1C
== END 2022-12-19 00:28 | disposition home or self-care (01) ==
PROVIDERS: Emergency Provider Internal Medicine
DX: H81.13 Benign paroxysmal vertigo, bilateral (principal); R55 Syncope and collapse; R11.0 Nausea; R06.02 Shortness of breath; Z11.52 Encounter for screening for COVID-19; Z20.822 Contact with and (suspected) exposure to COVID-19; Z79.899 Other long term (current) drug therapy; Z87.891 Personal history of nicotine dependence
CPT/HCPCS: 36415; 80053; 81001; 81003; 81025; 83690; 84484; 85025; 87635; 93005; 99284; J1790

== ENCOUNTER 2022-12-25 09:25 | Emergency (ER) | payer OTHER, SELFPAY ==
--- NOTE | ~2022-12-25 | CT_ITS ---
EXAMINATION: CT CERVICAL SPINE WITHOUT CONTRAST CLINICAL INFORMATION: Neck pain radiating into the right upper extremity. COMPARISON: No relevant prior imaging. TECHNIQUE: Manager Of Business Operations images were obtained. CT imaging of the cervical spine was performed without contrast. Data was reformatted into multiplanar images at the acquisition workstation. This CT examination was performed using dose optimization techniques as appropriate, variously including the following: *Automated exposure control *Adjustment of mA and/or kV according to patient size (this includes techniques or standardized protocols for targeted exams where dose is matched to indication/reason for exam; i.e. extremities or head) *Use of iterative reconstruction technique DLP: 528 mGy-cm FINDINGS: There is nonspecific reversal of the cervical lordosis. Alignment is otherwise normal. Vertebral heights are preserved. There is loss of intervertebral disc height with associated sclerotic degenerative endplate changes and hypertrophic disc osteophyte spurring at C5-C6 and C6-C7. Canal patency is not well assessed on this examination due to inherent limitations of CT without intrathecal contrast. There appears to be a broad central protrusion at C5-C6 causing at least moderate canal stenosis with possible compression of the cervical spinal cord there is at least mild canal stenosis at the levels of C4-C5 and C6-C7. No substantial bony neuroforaminal encroachment. Visualized soft tissues of the neck are unremarkable. Lung apices are clear. Limited visualization of the posterior fossa reveals no abnormal finding. CT/CT cervical spine wo IV con IMPRESSION: There is multilevel degenerative spondylosis of the cervical spine that appears most advanced at the levels of C5-C6 and C6-C7. There appears to be a broad central protrusion at C5-C6 causing at least moderate canal stenosis with possible compression of the cervical spinal cord. If there are clinical symptoms of compressive myelopathy then a dedicated cervical spine MRI can be obtained for better anatomic characterization of the cord and canal.
[2022-12-25 09:40] VITALS: BP 176/89; PULSE 84; RESP 20; TEMP 36.7; O2SAT 96; BMI 41.9
[2022-12-25] MEDS: traMADoL HCL 50 MG TABLET PO (11:34)
[2022-12-25] MEDS: predniSONE 20 MG TABLET 60 MG PO (11:52)
--- NOTE | 2022-12-25 12:30 | PC.NURSE ---
pt called nurse to room requested ice water- sts I was told to let you know if the tramadol helped. It didn't. the prednisone helped with the swelling but my pain is the same Pa aware
--- NOTE | 2022-12-25 12:30 | ED.EXTPRO ---
HPI - Extremity Problem General Chief complaint: Extremity Injury, Upper Stated complaint: R arm pain/neck pain Time Seen by Provider: 12/25/22 11:09 Source: patient Mode of arrival: ambulatory Limitations: no limitations History of Present Illness HPI Narrative: 42-year-old female history of known severe cervical radiculopathy and right sided carpal tunnel syndrome presents to ED for worsening right sided burning arm pain starting from the neck. patient denies any facial droop, nausea, vomiting, headache, any recent trauma, fever, chills, or paralysis of upper or lower extremities. Patient describes pain as 5 burning sensation. Patient was informed last week she will need to have surgery and is calling [facility] today to schedule the surgery. patient states hard to make a fist and hold objects. Related Data Home Medications Medication Instructions Recorded Confirmed carvedilol 25 mg tablet 25 mg PO BID 12/13/22 12/13/22 cholecalciferol (vitamin D3) 125 125 mcg PO DAILY 12/13/22 12/13/22 mcg (5,000 unit) tablet (Vitamin D3) cyanocobalamin (vitamin B-12) mcg PO 12/13/22 12/13/22 1,000 mcg tablet duloxetine 60 mg capsule,delayed 60 mg PO DAILY 12/13/22 12/13/22 release fexofenadine 180 mg tablet 180 mg PO DAILY 12/13/22 12/13/22 fluticasone fur. 200 mcg-umeclid 1 ea inhalation DAILY 12/13/22 12/13/22 62.5 mcg-vilant 25 mcg inhalat.powder (Trelegy Ellipta) lorazepam 0.5 mg tablet 0.5 mg PO DAILY PRN 12/13/22 12/13/22 losartan 100 mg tablet 100 mg PO DAILY 12/13/22 12/13/22 magnesium oxide mg PO 12/13/22 12/13/22 montelukast 10 mg tablet 10 mg PO DAILY 12/13/22 12/13/22 norethindrone acetate 1 mg-ethinyl 1 tab PO DAILY 12/13/22 12/13/22 estradiol 20 mcg tablet (Junel) omeprazole 20 mg capsule,delayed 20 mg PO BID 12/13/22 12/13/22 release potassium chloride 10 mEq 10 meq PO QID 12/13/22 12/13/22 tablet,extended release prednisone 20 mg tablet 40 mg PO DAILY PRN 12/13/22 12/13/22 ropinirole 4 mg tablet 4 mg PO BEDTIME 12/13/22 12/13/22 sodium di- and tab PO 12/13/22 12/13/22 monophosphate-potassium phos monobasic 250 mg tablet (Phospha Neutral) thiamine HCl (vitamin B1) 100 mg 100 mg PO DAILY 12/13/22 12/13/22 tablet Previous Rx's Medication Instructions Recorded cyclobenzaprine 10 mg tablet 10 mg PO TID PRN muscle spasm #15 11/26/22 tabs oxycodone 5 mg tablet 5 mg PO Q8H PRN pain #10 tabs 11/26/22 meclizine 25 mg tablet 25 mg PO TID PRN dizziness #20 tabs 12/19/22 prednisone 20 mg tablet 60 mg (3 x 20 mg) PO DAILY 5 days 12/25/22 #15 tabs tramadol 50 mg tablet 50 mg PO Q6H PRN pain 3 days #12 12/25/22 tabs Allergies Allergy/AdvReac Type Severity Reaction Status Date / Time amitriptyline Allergy Unknown sweat and Verified 12/25/22 09:44 constipation gabapentin Allergy Unknown adverse Verified 12/25/22 09:44 reaction oseltamivir [From TAMIFLU] Allergy Unknown STOMACH Verified 12/25/22 09:44 UPSET, nausea, vomiting pregabalin [From LYRICA] Allergy Unknown HEADACHES, Verified 12/25/22 09:44 cognitive slow down Review of Systems Review of Systems: right upper extremity burning pain from neck down the right arm. Yes all other systems are reviewed and are negative [facility] Past Medical History Medical History Inflammatory bowel disease Encounter for testing for latent tuberculosis infection Screening for viral disease History of PCOS Lower leg injury Sprain of finger Fatigue Joint pain Myositis Female pattern alopecia Vitamin D deficiency Restless legs Anxiety Depression Hereditary spherocytosis HTN (hypertension) Steatosis of liver Acute renal impairment Undifferentiated spondyloarthropathy Osteoarthritis Chronic interstitial cystitis Immunodeficiency Chronic fatigue syndrome Fibromyalgia Asthma IBS (irritable bowel syndrome) Obesity Surgical History History of surgery Hx of tonsillectomy History of appendectomy Family History Family History Paternal Grandfather Myocardial infarction Sister Thyroid disease Psoriasis Mother Thyroid disease Malignant melanoma Graves' disease Ulcerative colitis Sister Arthritis Father HTN (hypertension) Arthritis Social History Social History Alcohol intake: current Alcohol intake frequency: holidays/special occasions only Patient Tobacco Use Status: Former Tobacco user Substance Use Type: Marijuana Advance Directives: No Current occupational status: employed Current occupation: works for [employer] Physical Exam Vital Signs: Vital Signs: Last Vital Signs Temp 98.0 F 12/25/22 09:40 Pulse 84 12/25/22 09:40 Resp 20 12/25/22 09:40 BP 176/89 H 12/25/22 09:40 Pulse Ox 96 12/25/22 09:40 O2 Del Method Room Air 12/25/22 09:40 BMI result Body Mass Index 41.9 Const: General: cooperative, healthy appearing, comfortable, no acute distress, well developed, alert and awake Orientation/consciousness: oriented to person, oriented to place, oriented to time and patient oriented x3 HEENT: Head: Yes normal to inspection, Yes No palpable skull fracture present, Yes normocephalic, Yes atraumatic and No abrasion Eyes: General: appearance normal, both eyes and all related structures Neck: Neck: Yes normal visual inspection, Yes full ROM, Yes no lymphadenopathy, Yes no meningeal signs, Yes trachea midline, Yes supple, No anterior neck swelling and Yes tender ( posterior cervical) Chest: Chest palpation & inspection: normal inspection of the chest and normal palpation of entire chest wall Resp: Effort & Inspection: normal respiratory effort and able to speak in complete sentences Auscultation: clear to auscultation bilaterally Cardio: Jugular venous distension: no JVD Heart sounds: S1 normal heart sound present and S2 normal heart sound present GI: Inspection: Yes normal to inspection and No abdominal wall ecchymosis Palpation (GI): Soft to palpation, not firm, nontender, no guarding and not rigid : General: No CVA tenderness and Yes no CVA tenderness Back/Spine/Pelvis: Back: no CVA tenderness, No CVA tenderness and No back tenderness Skin: General skin exam: no rashes or lesions noted and elasticity normal Neuro: General: oriented to person, oriented to place, oriented to time, patient oriented x3, gait normal, tone normal, moves all extremities, Normal light touch and pain sensation, no meningeal signs, CN's II-XI intact bilaterally and normal sensation to monofilament Extrem: General: Yes normal to inspection and Yes full ROM Shoulder/upper arm images: 1. Positive for tenderness on palpation. Negative for crepitus, ecchymosis, or deformity. Negative for swelling or redness. positive for pain on range of motion and decreased range of motion Elbow/forearm/wrist images: 1. Positive for tenderness on palpation. 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 Patient states sensation of right and left lower extremity the same. Vascular exam and neuro exam intact. Motor exam intact but limited due to pain Psych: Appearance: grossly normal, well kempt and not disheveled Course Course Course Narrative: These are patient's [facility] MRI results Medications Administered Discontinued Medications Generic Name Dose Route Start Last Admin Trade Name Freq PRN Reason Stop Dose Admin Ketorolac Tromethamine 30 mg 12/25/22 12:32 12/25/22 12:46 Ketorolac Tromethamine 30 Mg/Ml Vial IM 12/25/22 12:33 30 mg ONCE ONE Administration Prednisone 60 mg 12/25/22 11:38 12/25/22 11:52 Prednisone 20 Mg Tablet PO 12/25/22 11:39 60 mg ONCE ONE Administration Tramadol HCl 50 mg 12/25/22 11:28 12/25/22 11:34 Tramadol Hcl 50 Mg Tablet PO 12/25/22 11:29 50 mg ONCE ONE Administration Medical Decision Making Medical Decision Making [facility] Narrative: 42-year-old female with history of cervical radiculopathy presents to ED for right upper extremity burning pain radiating from neck. Patient denies any new trauma. Patient states difficulty making a fist and holding objects. Patient is sent for cervical spine CT scan. 2:33pm: CT scan shows possible compression of the cervical spinal cord. patient re-evaluated and she states after taking Toradol and steroids she feels better. Patient now able to make to make complete fist with the right arm. Patient able to hold objects in right hand without any weakness. Patient has complete range of motion of right upper extremity. Patient able to lift right upper extremity all the way up without pain. Patient states usually with steroids her symptoms improved. Patient has MRI December 14 which she showed me on her portable [facility] which shows MRI December 14 with also states compression of the cervical spinal cord. Patient states she was aware of that and she she call today before came into the room and spoke with vince [facility] orthopedic spine surgeon and she schedule for surgery January 29. CT scan reading today same as at MRI reading done on December 14 at [facility]. No signs of myelopathy. Patient is safe for discharge. Dr. Aiken with plan. Patient informed to follow up with [facility] as soon as possible. Differential Diagnosis Differential Diagnoses: The differential diagnosis associated with the presentation includes ( cervical radiculopathy, cervical myelopathic, cervical spine fracture, right upper extremity fracture. compartment syndrome) Admission/Observation Consideration of admission/observation: Escalation of care including admission/observation considered Independent Interpretation I performed an independent interpretation of an: CT Scan Radiology Impression Discussion of test interpretation with radiology: I have reviewed the radiologist's reading. Independent Historian Clinical information obtained from an independent historian. History obtained from or confirmed by: Spouse External Record Review External record reviewed: Other ( prior [facility] note) Tests considered The following testing was considered but not selected: MRI Prescription Management I considered prescription management with: Pain Medication Discharge Plan Discharge Clinical Impression: Cervical radiculopathy Patient Disposition: Home, Self-Care Instructions: Cervical Radiculopathy (ED) Additional Instructions: recommend follow-up with your [facility] orthopedic spinal surgeon specialist for re-evaluation. You will be discharged with pain medication and steroids. Return to the ED immediately for any paralysis of right upper extremity, severe neck pain, tingling in upper or lower extremities, facial droop, loss of vision, slurred speech, urinary/bowel incontinence, headache, dizziness, fever, chills, severe neck pain, or any other concerning symptoms. Prescriptions: New prednisone 20 mg tablet 60 mg PO DAILY 5 Days Qty: 15 0RF tramadol 50 mg tablet 50 mg PO Q6H PRN (Reason: pain) 3 Days Qty: 12 0RF No Action cyclobenzaprine 10 mg tablet 10 mg PO TID PRN (Reason: muscle spasm) Qty: 15 0RF oxycodone 5 mg tablet 5 mg PO Q8H PRN (Reason: pain) Qty: 10 0RF Rx Instructions: Partial Fill upon patient request. meclizine 25 mg tablet 25 mg PO TID PRN (Reason: dizziness) Qty: 20 0RF ropinirole 4 mg tablet 4 mg PO BEDTIME duloxetine 60 mg capsule,delayed release(DR/EC) 60 mg PO DAILY magnesium oxide 250 mg magnesium tablet PO montelukast 10 mg tablet 10 mg PO DAILY omeprazole 20 mg capsule,delayed release(DR/EC) 20 mg PO BID potassium chloride 10 mEq tablet extended release 10 meq PO QID norethindrone ac-eth estradiol [03/17 ()] 1-20 mg-mcg tablet 1 tab PO DAILY losartan 100 mg tablet 100 mg PO DAILY fexofenadine 180 mg tablet 180 mg PO DAILY thiamine HCl (vitamin B1) 100 mg tablet 100 mg PO DAILY carvedilol 25 mg tablet 25 mg PO BID cholecalciferol (vitamin D3) [Vitamin D3] 125 mcg (5,000 unit) tablet 125 mcg PO DAILY lorazepam 0.5 mg tablet 0.5 mg PO DAILY PRN Phospha 250 Neutral 250 mg tablet PO Trelegy Ellipta 200-62.5-25 mcg blister with device 1 ea inhalation DAILY cyanocobalamin (vitamin B-12) 1,000 mcg tablet PO prednisone 20 mg tablet 40 mg PO DAILY PRN Stand Alone Forms: Work/School Release Interventions: ED Discharge Assessment Last Done: 12/25/22 14:59 Discharge Date/Time: 12/25/22 14:59 Print Language: Telugu
[2022-12-25] MEDS: Ketorolac Tromethamine 30 MG/ML VIAL IM (12:46)
--- NOTE | 2022-12-25 12:54 | PC.NURSE ---
pt medicated per MAR
== END 2022-12-25 14:59 | disposition home or self-care (01) ==
PROVIDERS: Emergency Provider Student in an Organized Health Care Education/Training Program; PCP Physician Assistant Medical
DX: M54.12 Radiculopathy, cervical region (principal); Z79.899 Other long term (current) drug therapy; Z87.891 Personal history of nicotine dependence
CPT/HCPCS: 72125; 96372; 99283; 99284; J1885

== ENCOUNTER 2023-01-09 15:58 | Outpatient (AMB) | payer OTHER, SELFPAY ==
[2023-01-09 15:57] VITALS: BP 160/88; PULSE 87; TEMP 36.1; O2SAT 97; BMI 41.0
--- NOTE | 2023-01-09 15:57 | MHC.OFFVIS ---
Intake Vital Signs 01/09/23 15:57 Height 5 ft 8 in Weight 269 lb 10.005 oz BMI 41.0 BP 160/88 H Blood Pressure Location Rt brachial Position Sitting Pulse 87 Pulse Source Pulse Oximeter Temp 97.0 F Temp Source Skin Pulse Oximetry (%) 97 Oxygen Delivery Method Room Air Intake Visit Reasons: SpA Intake Note: Pt last seen 12/13/22, presents today for follow up and test results. Vocational Rehab Consultant Required: No Accompanied by: Significant Other Allergies amitriptyline Allergy (Unknown, Verified 01/09/23 16:00) sweat and constipation gabapentin Allergy (Unknown, Verified 01/09/23 16:00) adverse reaction oseltamivir [From TAMIFLU] Allergy (Unknown, Verified 01/09/23 16:00) STOMACH UPSET, nausea, vomiting pregabalin [From LYRICA] Allergy (Unknown, Verified 01/09/23 16:00) HEADACHES, cognitive slow down Medication List - Last Reconciled 01/09/23 by Hernandez Montanez MD carvedilol 25 mg PO BID cholecalciferol (vitamin D3) (Vitamin D3) 125 mcg PO DAILY cyanocobalamin (vitamin B-12) mcg PO cyclobenzaprine 10 mg PO TID PRN duloxetine 60 mg PO DAILY fexofenadine 180 mg PO DAILY kcclnjzczar-lucgmsxgo-qcujrdno 200-62.5-25 mcg (Trelegy Ellipta) 1 ea inhalation DAILY lorazepam 0.5 mg PO DAILY PRN losartan 100 mg PO DAILY magnesium oxide mg PO meclizine 25 mg PO TID PRN montelukast 10 mg PO DAILY norethindrone ac-eth estradiol 1-20 mg-mcg (Junel) 1 tab PO DAILY omeprazole 20 mg PO BID oxycodone 5 mg PO Q8H PRN potassium chloride ER 10 mEq PO QID prednisone orally; ropinirole 4 mg PO BEDTIME sod phos di, mono-K phos mono 250 mg (Phospha Neutral) tabs PO thiamine HCl (vitamin B1) 100 mg PO DAILY tramadol 50 mg PO Q6H PRN 3 days HPI HPI Comments History of Present Illness Details Patient returns for follow-up after completion of her blood work. She was evaluated by Neurosurgery and will be going for cervical spine surgery January 29. She is currently on a prednisone taper Initial history: This is a 42-year-old female who presents for evaluation of multiple joint pain. Patient has seen multiple rheumatologists over the past few years. She used to follow-up with Dr. Morrow. She was not diagnosed with a specific an autoimmune rheumatic disease, per patient. She used to receive knee cortisone injections every 3-4 months. She was seen once by Dr. Velez in 2019 and was diagnosed with an undifferentiated spondyloarthropathy and was prescribed sulfasalazine, patient did not take sulfasalazine for fear of side effects. Patient states that she gets intermittent abrupt onset of toe swelling. She denies any skin rashes. For 1 year she has been having right elbow swelling, unrelated to activity. More recently she has been having sharp neck pain radiating to both shoulders. She has been having tingling and numbness of both hands, more so in the left hand. She states that prednisone has always been helpful. She is currently prescribed prednisone by the ER, when she presented a few days ago. She is scheduled for a neck MRI today. Ordered by PCP. She states that she has been having GI symptoms for years did multiple studies including endoscopy, colonoscopy, motility study, according to patient no test was diagnostic. She has a sister with psoriasis and mother with ulcerative colitis [facility] Medical History (Updated 01/09/23 @ 16:34 by Hernandez Montanez MD) History of PCOS Lower leg injury Sprain of finger Fatigue Joint pain Myositis Female pattern alopecia Vitamin D deficiency Restless legs Anxiety Depression Hereditary spherocytosis HTN (hypertension) Steatosis of liver Acute renal impairment Undifferentiated spondyloarthropathy Osteoarthritis Chronic interstitial cystitis Immunodeficiency Chronic fatigue syndrome Fibromyalgia Asthma IBS (irritable bowel syndrome) Obesity Surgical History History of surgery Hx of tonsillectomy History of appendectomy Family History Paternal Grandfather Myocardial infarction Sister Thyroid disease Psoriasis Mother Thyroid disease Malignant melanoma Graves' disease Ulcerative colitis Sister Arthritis Father HTN (hypertension) Arthritis Social History Alcohol intake: current Alcohol intake frequency: holidays/special occasions only Patient Tobacco Use Status: Former Tobacco user Substance Use Type: Marijuana Current occupational status: employed Current occupation: works for [employer] ENT Reports neck pain Musc Reports neck pain Physical Exam Vital Signs: Last Vital Signs Temp 97.0 F 01/09/23 15:57 Pulse 87 01/09/23 15:57 BP 160/88 H 01/09/23 15:57 Pulse Ox 97 01/09/23 15:57 Oxygen Delivery Method Room Air 01/09/23 15:57 BMI result Body Mass Index 41.0 Const General: cooperative and healthy appearing Nutritional Appearance: obese morbidly obese Orientation/consciousness: patient oriented x3 Limitations: no limitations HEENT Head: Yes normocephalic and Yes atraumatic Resp Effort & Inspection: normal respiratory effort and able to speak in complete sentences Neuro General: patient oriented x3 Results Reviewed Results Reviewed: Labs in 2018: TABITHA 1-40 speckled, ESR normal, dsDNA normal, HLA B27 negative, josias negative, CCP/RF negative Labs 2017? Synovial fluid showed WBC 7250 with 58% neutrophils CT pelvis showed chronic sclerotic changes and spurring across patent sacroiliac joint, MRI sacrum did not show sacroiliitis Right elbow MRI without contrast 08/2022 Interpretation:? There is increased signal and thickening involving the common extensor tendon most consistent with tendinopathy and and mild to moderate lateral epicondylitis.? The radial collateral ligament complex is intact.?? The common flexor tendon is intact.? The medial ulnar collateral ligament is intact.?? The biceps, brachialis and triceps tendons are intact.? The annular ligament is intact.? The anconeus muscle is intact.? Ulnar nerve is intact without abnormal signal.?? The adrenal is intact within its fossa.? There is no evidence of any bone marrow edema of the agreement.? The coracoid process is intact.? The radial head and neck are intact.? No significant joint effusion is seen? Conclusion: 1. There is increased signal and thickening of the common extensor tendon consistent with a moderate lateral epicondylitis.?? 2. The remaining tendons, ligaments an osseous structures of the elbow are intact Right wrist x-ray 08/2022? Findings there is no acute fracture, subluxation, or dislocation.?? The soft tissues are unremarkable.?? Impression:? No acute bone abnormality Right elbow x-ray 08/2022? Findings:? No fracture, subluxation or dislocation is evident.? There is no joint effusion.? There is a sclerotic intramedullary density in the distal right humeral diaphysis likely a bone island The soft tissues are unremarkable? Impression:? No acute bone abnormality Chest x-ray 08/2022? Impression:? No acute disease SI joint x-rays 03/2021 Impression:? Within normal limits Right hip x-ray 08/2020? Impression: 1. No bony abnormality 2. No gross arthritic change? Right knee x-ray 08/2020? Impression:? 1. No bony injury? 2. Mild tricompartmental osteoarthritis T-spine x-ray 07/2020? Impression:? There are multilevel degenerative disc disease changes throughout the spine MRI cervical spine 11/2022 Impression: 1. Degenerative changes are seen in the mid to lower cervical spine with suspected OPLL at C5 & C6.? There is moderate to severe narrowing of the right half of the spinal canal at C5-6? resulting in compression of the right half of the cord, though no definite myelopathic signal abnormality seen. OPLL would be better seen on CT 2. There is also moderate canal stenosis at C4-5 due to a central disc extrusion with mild compression of the cord, though no myelopathic signal abnormality seen. 3. There is severe right neural foraminal stenosis at C6-7 Labs 07/2022 WBC 16.3? Hemoglobin 13.3? Platelets 533 BMP unremarkable LFT normal SPEP:? Normal except for mildly reduced albumin at 3.7 (>3.8) Total cholesterol 151? Triglycerides 172 HDL 43 Direct LDL 77 TSH 1.00 PTH 65 nl Iron studies all normal CBC Labs 12/2022 PR3 positive C Anca/p-ANCA/atypical p-ANCA all negative IgG/IgA normal IgM low Assessment & Plan Assessment & Plan (1) Undifferentiated spondyloarthropathy: Code(s): M47.819 - Spondylosis without myelopathy or radiculopathy, site unspecified Plan: This is a 42-year-old female presents for evaluation of diffuse joint pain. Symptoms ongoing since at least 2017. Previously patient had inflammatory fluid in her right knee. Right elbow MRI showed signs suggestive of tennis elbow. CT pelvis showed spurring and sclerosis across patent SI joints. MR pelvis did not show sacroiliitis. Previous labs showed: TABITHA 1-40, negative on repeat/TABITHA/dsDNA/HLA B27/CCP/RF/C Anca/p-ANCA/atypical ANCA/MPO all negative PR3 positive She has no symptoms suggestive of vasculitis. She has a sister with psoriasis and another sister with ulcerative colitis. I explained to patient that upon my evaluation I believe her symptoms are related to an undifferentiated spondyloarthropathy in addition to degenerative arthritis and fibromyalgia. 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 I suggested starting a low-dose sulfasalazine 500 mg Twice daily and monitoring her symptoms. Patient was worried about multiple side effects. She stated that she has had numerous infections. She stated that she has had multiple UTIs and blood infections she also stated that she has low vitamin B12, vitamin-D and phosphorus. Per chart review I do not see any hospital admission for sepsis. My suggestion at this point is to start sulfasalazine 500 mg Twice daily a few weeks after her neck surgery and monitoring her response. Patient was not convinced and she stormed out Plan I spent 30 minutes reviewing patient's chart, evaluating patient, counseling patient and documenting in the chart Coding Level of Care Code Est Pt Level 4 (39549) Diagnoses Undifferentiated spondyloarthropathy M47.819
== END 2023-01-09 16:31 | disposition home or self-care (01) ==
PROVIDERS: PCP Physician Assistant Medical; Visit Provider Student in an Organized Health Care Education/Training Program
DX: M47.819 Spondylosis without myelopathy or radiculopathy, site unspecified (principal)
CPT/HCPCS: 99214

== ENCOUNTER → 2023-01-09 15:58 | Outpatient (BNVA) | payer OTHER, SELFPAY | PROVIDERS: PCP Physician Assistant Medical; Visit Provider Student in an Organized Health Care Education/Training Program ==

== ENCOUNTER 2023-03-21 14:51 | Emergency (ER) | payer OTHER, SELFPAY ==
--- NOTE | ~2023-03-21 | XR_ITS ---
EXAMINATION: XR CHEST CLINICAL INFORMATION: Cough COMPARISON: None available. TECHNIQUE: 2 views of the chest were obtained. FINDINGS: No significant abnormality is noted involving the heart, lungs, mediastinum, or soft tissues. Lower cervical surgical hardware. Multilevel mild thoracic vertebral body height losses and spurring. Mild lower thoracic disc space narrowing XR/XR chest 2V IMPRESSION: No acute cardiopulmonary disease.
--- NOTE | 2023-03-21 15:01 | ED_ITS ---
HPI - URI/Sore Throat General Chief Complaint: Upper Respiratory Symptoms Stated Complaint: Upper respiratory infection Time Seen by Provider: 03/21/23 19:27 Related Data Home Medications Medication Instructions Recorded Confirmed carvedilol 25 mg tablet 25 mg PO BID 12/13/22 12/13/22 cholecalciferol (vitamin D3) 125 125 mcg PO DAILY 12/13/22 12/13/22 mcg (5,000 unit) tablet (Vitamin D3) cyanocobalamin (vitamin B-12) mcg PO 12/13/22 12/13/22 1,000 mcg tablet duloxetine 60 mg capsule,delayed 60 mg PO DAILY 12/13/22 12/13/22 release fexofenadine 180 mg tablet 180 mg PO DAILY 12/13/22 12/13/22 fluticasone fur. 200 mcg-umeclid 1 ea inhalation DAILY 12/13/22 12/13/22 62.5 mcg-vilant 25 mcg inhalat.powder (Trelegy Ellipta) lorazepam 0.5 mg tablet 0.5 mg PO DAILY PRN 12/13/22 12/13/22 losartan 100 mg tablet 100 mg PO DAILY 12/13/22 12/13/22 magnesium oxide mg PO 12/13/22 12/13/22 montelukast 10 mg tablet 10 mg PO DAILY 12/13/22 12/13/22 norethindrone acetate 1 mg-ethinyl 1 tab PO DAILY 12/13/22 12/13/22 estradiol 20 mcg tablet (Junel) omeprazole 20 mg capsule,delayed 20 mg PO BID 12/13/22 12/13/22 release potassium chloride 10 mEq 10 meq PO QID 12/13/22 12/13/22 tablet,extended release ropinirole 4 mg tablet 4 mg PO BEDTIME 12/13/22 12/13/22 sodium di- and tab PO 12/13/22 12/13/22 monophosphate-potassium phos monobasic 250 mg tablet (Phospha Neutral) thiamine HCl (vitamin B1) 100 mg 100 mg PO DAILY 12/13/22 12/13/22 tablet prednisone 5 mg tablet See Rx Instructions PO .COMPLEX 01/09/23 Previous Rx's Medication Instructions Recorded cyclobenzaprine 10 mg tablet 10 mg PO TID PRN muscle spasm #15 11/26/22 tabs oxycodone 5 mg tablet 5 mg PO Q8H PRN pain #10 tabs 11/26/22 meclizine 25 mg tablet 25 mg PO TID PRN dizziness #20 tabs 12/19/22 tramadol 50 mg tablet 50 mg PO Q6H PRN pain 3 days #12 12/25/22 tabs amoxicillin 500 mg capsule 1,000 mg (2 x 500 mg) PO TID 7 03/21/23 days #42 caps doxycycline hyclate 100 mg tablet 100 mg PO Q12H 7 days #14 tabs 03/21/23 Allergies Allergy/AdvReac Type Severity Reaction Status Date / Time amitriptyline Allergy Unknown sweat and Verified 01/09/23 16:00 constipation gabapentin Allergy Unknown adverse Verified 01/09/23 16:00 reaction oseltamivir [From TAMIFLU] Allergy Unknown STOMACH Verified 01/09/23 16:00 UPSET, nausea, vomiting pregabalin [From LYRICA] Allergy Unknown HEADACHES, Verified 01/09/23 16:00 cognitive slow down PMFSH Past Medical History Medical History (Updated 03/21/23 @ 19:46 by Reginaldo Lee MD) History of PCOS Lower leg injury Sprain of finger Fatigue Joint pain Myositis Female pattern alopecia Vitamin D deficiency Restless legs Anxiety Depression Hereditary spherocytosis HTN (hypertension) Steatosis of liver Acute renal impairment Undifferentiated spondyloarthropathy Osteoarthritis Chronic interstitial cystitis Immunodeficiency Chronic fatigue syndrome Fibromyalgia Asthma IBS (irritable bowel syndrome) Obesity Surgical History History of surgery Hx of tonsillectomy History of appendectomy Family History Family History Paternal Grandfather Myocardial infarction Sister Thyroid disease Psoriasis Mother Thyroid disease Malignant melanoma Graves' disease Ulcerative colitis Sister Arthritis Father HTN (hypertension) Arthritis Social History Social History Alcohol intake: current Alcohol intake frequency: holidays/special occasions only Patient Tobacco Use Status: Former Tobacco user Substance Use Type: Marijuana Advance Directives: No Advance Directives Information Provided: No Current occupational status: employed Current occupation: works for [email or web address] Physical Exam 2 Vital Signs: Vital Signs: Last Vital Signs Temp 98.3 F 03/21/23 15:06 Pulse 86 03/21/23 18:57 Resp 22 H 03/21/23 18:57 BP 171/91 H 03/21/23 15:06 Pulse Ox 97 03/21/23 15:06 O2 Del Method Room Air 03/21/23 15:06 BMI result Body Mass Index 40.0 Course Course Course Narrative: ADRIA: 42 year-old F w/ PMHx HTN, asthma, asplenic, hypophosphatemia, presenting to the ED c/o cough, congestion, rhinorrhea, N[place]OLES & SOB x9 days. Given cough meds w/codeine & Prednisone x2 days ago w/o relief. Also states she is worried about her electrolytes as they usually affected when she is sick Lungs CTA, dry cough appreciated viral testing, CXR, Duoneb ordered Full HPI, ROS and PE to be performed by primary ED provider. Medications Administered Discontinued Medications Generic Name Dose Route Start Last Admin Trade Name Freq PRN Reason Stop Dose Admin Albuterol Sulfate 2.5 mg 03/21/23 18:52 03/21/23 18:56 Albuterol Sulfate (0.083%) 2.5 Mg/3 Ml Vial.Neb INHALE 03/21/23 18:53 2.5 mg ONCE ONE Administration Albuterol Sulfate 2.5 mg/ 0 mg 03/21/23 15:40 03/21/23 15:44 Albuterol/Ipratropium 3 ml INHALE 03/21/23 15:41 1 dose ONCE ONE Administration Medical Decision Making Lab Data 03/21/23 15:17 03/21/23 15:17 Labs: Lab Results 03/21/23 Range/Units 15:17 WBC 21.3 H (4.8-10.8) X10*3/uL RBC 4.29 (4.20-5.50) X10*6/uL Hgb 13.8 (12.0-16.0) g/dl Hct 41.2 (37.0-47.0) % MCV 96.0 (80.0-98.0) fL MCH 32.2 (27.0-33.0) pg MCHC 33.5 (31.0-35.0) g/dl RDW 13.9 (11.0-16.0) % Plt Count 539 H (160-400) X10*3/uL MPV 10.5 (9.4-12.3) fL Immature Gran % (Auto) 1.4 H (0.0-0.4) % Neut % (Auto) 65.0 (45-73) % Lymph % (Auto) 23.2 (20-40) % Charles % (Auto) 9.4 (2-11) % Eos % (Auto) 0.6 (0-4) % Baso % (Auto) 0.4 (0-2) % Lymph # (Auto) 5.0 H (1.2-4.9) X10*3/uL Charles # (Auto) 2.0 H (0.1-1.2) X10*3/uL Eos # (Auto) 0.1 (0.0-0.4) X10*3/uL Baso # (Auto) 0.1 (0.0-0.2) X10*3/uL Abs Immat Gran (auto) 0.30 H (0.00-0.03) X10*3/uL Absolute Neuts (auto) 13.9 H (2.0-8.3) x10*3/uL Absolute Nucleated RBC 0.000 (0.0-0.012) X10*3/uL Nucleated RBC % (auto) 0.0 (0.0-0.2) /100WBC Smear Tech's Comments VERIFIED Sodium 138 (135-145) mmol/L Potassium 3.8 (3.3-5.1) mmol/L Chloride 109 H (96-108) mmol/L Carbon Dioxide 22 (22-29) mmol/L Anion Gap 11 L (12-20) BUN 19 H (9-16) mg/dL Creatinine 0.96 (0.5-1.4) mg/dL Estim Creat Clear Calc 104.8 Estimated GFR > 60 Random Glucose 80 (60-115) mg/dL Calcium 9.4 (8.4-10.2) mg/dL Phosphorus 2.5 L (2.7-4.5) mg/dL Magnesium 1.9 (1.6-2.6) mg/dL Troponin I High Sens < 2.7 (<3.5-17.0) ng/L B-Natriuretic Peptide 36 (<100) pg/mL COVID-19 (SHAYLA) Negative (Negative) COVID-19 Clin Com See Note Influenza Type A (MACKENZIE) Negative (Negative) Influenza Type B (MACKENZIE) Negative (Negative) Influenza A & B Note See Note S. pyogenes GrpA MACKENZIE Negative (Negative) Radiology Impression Discussion of test interpretation with radiology: I have reviewed the radiologist's reading. Radiologist Impression: XR chest 2V IMPRESSION: No acute cardiopulmonary disease. Dictated By: Alicja Carcamo MD Discharge Plan Discharge Clinical Impression: Acute bronchitis Qualifiers: Bronchitis organism: other organism Qualified Code(s): J20.8 - Acute bronchitis due to other specified organisms Asthma exacerbation Qualifiers: Asthma severity: moderate Asthma persistence: persistent Qualified Code(s): J 45.41 - Moderate persistent asthma with (acute) exacerbation Patient Disposition: Home, Self-Care Instructions: Acute Bronchitis (ED) Additional Instructions: Your blood work was normal except for an elevated white blood cell count elevated platelet count. Your COVID-19, influenza and rapid strep test were negative. Your chest x-ray did not reveal any evidence for pneumonia. Your phosphorus was slightly low at 2.5, take your phosphorus supplement as directed by your card brusher Your symptoms are concerning for bronchitis which could be caused by a virus or bacteria, given the fact that you have no spleen I want to treat you with antibiotics. Insert amoxicillin instruct Take doxycycline 100 mg, 1 pill every 12 hours for 7 days Take amoxicillin 500 mg pills, 2 pills, every 6 hours (3 times a day) for 7ays. Continue taking your prednisone as prescribed unusual nebulizers as prescribed. Follow-up with your doctor in 2 days. Please return to the emergency department if your symptoms get worse or if you develop any symptoms that are concerning to you. Prescriptions: New amoxicillin 500 mg capsule 1,000 mg PO TID 7 Days Qty: 42 0RF doxycycline hyclate 100 mg tablet 100 mg PO Q12H 7 Days Qty: 14 0RF No Action cyclobenzaprine 10 mg tablet 10 mg PO TID PRN (Reason: muscle spasm) Qty: 15 0RF oxycodone 5 mg tablet 5 mg PO Q8H PRN (Reason: pain) Qty: 10 0RF Rx Instructions: Partial Fill upon patient request. meclizine 25 mg tablet 25 mg PO TID PRN (Reason: dizziness) Qty: 20 0RF tramadol 50 mg tablet 50 mg PO Q6H PRN (Reason: pain) 3 Days Qty: 12 0RF prednisone 5 mg tablet See Rx Instructions PO .COMPLEX Rx Instructions: orally; ropinirole 4 mg tablet 4 mg PO BEDTIME duloxetine 60 mg capsule,delayed release(DR/EC) 60 mg PO DAILY magnesium oxide 250 mg magnesium tablet PO montelukast 10 mg tablet 10 mg PO DAILY omeprazole 20 mg capsule,delayed release(DR/EC) 20 mg PO BID potassium chloride 10 mEq tablet extended release 10 meq PO QID norethindrone ac-eth estradiol [03/17 ()] 1-20 mg-mcg tablet 1 tab PO DAILY losartan 100 mg tablet 100 mg PO DAILY fexofenadine 180 mg tablet 180 mg PO DAILY thiamine HCl (vitamin B1) 100 mg tablet 100 mg PO DAILY carvedilol 25 mg tablet 25 mg PO BID cholecalciferol (vitamin D3) [Vitamin D3] 125 mcg (5,000 unit) tablet 125 mcg PO DAILY lorazepam 0.5 mg tablet 0.5 mg PO DAILY PRN Phospha 250 Neutral 250 mg tablet PO Trelegy Ellipta 200-62.5-25 mcg blister with device 1 ea inhalation DAILY cyanocobalamin (vitamin B-12) 1,000 mcg tablet PO
[2023-03-21 15:06] VITALS: BP 171/91; PULSE 77; RESP 17; TEMP 36.8; O2SAT 97; BMI 40.0
[2023-03-21 15:27] LABS: Basophils Absolute Auto 0.1 X10*3/uL (0.0-0.2); Basophils Percent Auto 0.4 % (0-2); Eosinophils Absolute Auto 0.1 X10*3/uL (0.0-0.4); Eosinophils Percent Auto 0.6 % (0-4); Hematocrit 41.2 % (37.0-47.0); Hemoglobin 13.8 g/dl (12.0-16.0); Imm Gran Pct Auto 1.4 % (0.0-0.4); Lymphocytes Percent Auto 23.2 % (20-40); MANUAL DIFF FLAG SCAN; Mean Corpuscular HGB Conc 33.5 g/dl (31.0-35.0); Mean Corpuscular Hemoglobin 32.2 pg (27.0-33.0); Mean Platelet Volume 10.5 fL (9.4-12.3); Monocytes Percent Auto 9.4 % (2-11); Neutrophils Absolute Auto 13.9 x10*3/uL (2.0-8.3); Platelet Count 539 X10*3/uL (160-400); Red Blood Count 4.29 X10*6/uL (4.20-5.50); Red Cell Distribution Width 13.9 % (11.0-16.0); SCAN SMEAR FLAG 1; White Blood Count 21.3 X10*3/uL (4.8-10.8)
[2023-03-21 15:43] LABS: IDNOW Serial# 6674DD1D; Strep A Nucleic Acid Negative (Negative)
[2023-03-21] MEDS: Albuterol Sulfate 2.5 MG, Albuterol/Iprat 2.5/0.5MG 3 ML 3 ML INHALE (15:44)
[2023-03-21 15:45] VITALS: PULSE 82; RESP 22; O2SAT 99
[2023-03-21 15:46] LABS: Anion Gap 11 (12-20); Blood Urea Nitrogen 19 mg/dL (9-16); Calcium 9.4 mg/dL (8.4-10.2); Carbon Dioxide 22 mmol/L (22-29); Chloride 109 mmol/L (96-108); Creatinine Clr Calc Pharmacy 104.8; Estimated Glomerular Filt Rate > 60; Glucose Random 80 mg/dL (60-115); Magnesium 1.9 mg/dL (1.6-2.6); Phosphorus 2.5 mg/dL (2.7-4.5); Potassium 3.8 mmol/L (3.3-5.1); Sodium 138 mmol/L (135-145)
[2023-03-21 15:51] LABS: B Type Natriuretic Peptide 36 pg/mL (<100)
[2023-03-21 15:53] LABS: COVID-19 Test Negative (Negative); IDNOW Serial# 16C4AD1C; IDNOW Serial# 55D5AD1C; Influenza A Negative (Negative); Influenza B2 Negative (Negative); Troponin-I High Sensitivity < 2.7 ng/L (<3.5-17.0)
[2023-03-21 16:18] LABS: SLIDE REVIEW VERIFIED
[2023-03-21] MEDS: Albuterol Sulfate (0.083%) 2.5 MG/3 ML VIAL.NEB INHALE (18:56)
[2023-03-21 18:57] VITALS: PULSE 86; RESP 22; O2SAT 99
[2023-03-21 19:32] VITALS: BP 157/76; PULSE 86; RESP 16; O2SAT 98
[2023-03-21] MEDS: predniSONE 20 MG TABLET 60 MG PO (19:50)
[2023-03-21] MEDS: Amoxicillin 500 MG CAPSULE 1000 MG PO (19:50)
[2023-03-21] MEDS: Doxycycline Monohydrate 100 MG CAPSULE PO (19:50)
== END 2023-03-21 19:57 | disposition home or self-care (01) ==
PROVIDERS: Physician Assistant; Emergency Provider Emergency Medicine Emergency Medical Services
DX: J20.8 Acute bronchitis due to other specified organisms (principal); J45.41 Moderate persistent asthma with (acute) exacerbation; J02.9 Acute pharyngitis, unspecified; R06.02 Shortness of breath; R05.9 Cough, unspecified; Z11.52 Encounter for screening for COVID-19; Z79.899 Other long term (current) drug therapy; Z87.891 Personal history of nicotine dependence
CPT/HCPCS: 36415; 71046; 80048; 83735; 83880; 84100; 84484; 85025; 87502; 87635; 87651; 94640; 99284